=== PATIENT | female | born 1960 | race American Indian/Alaskan Native ===

== ENCOUNTER 2019-06-29 06:01 | Inpatient (IN) | payer MEDICARE ==
[2019-06-29] MEDS ORDERED: BUPIVACAINE-EPINEPHRINE/PF 0.5%-1:200,000 (30 ML) VIAL INFILTRATI ONE ×2 (06:50→08:08)
[2019-06-29] MEDS ORDERED: LACTATED RINGERS 1,000 ML ONE (07:07)
[2019-06-29] MEDS ORDERED: fentaNYL 100 MCG/2 ML INJ IV PRN (07:17)
[2019-06-29] MEDS ORDERED: ONDANSETRON 4 MG/2 ML INJ IV PRN (07:17)
[2019-06-29] MEDS ORDERED: HYDROmorphone 1 MG/1 ML INJ IV PRN (07:17)
--- NOTE | 2019-06-29 07:18 | Anesthesia Day of Surgery ---
Anesthesia Day of Surgery - Day of Surgery Patient Examined: Yes Patient H&P Reviewed: Yes Patient is NPO: Yes
--- NOTE | 2019-06-29 07:23 | Anesthesia Consultation ---
Anesthesia Consult and Med Hx Date of service: 06/29/19 - Airway Anesthetic Teeth Evaluation: Good ROM Head & Neck: Adequate Mental/Hyoid Distance: Adequate Mallampati Class: Class II Intubation Access Assessment: Probably Good - Pre-Operative Health Status ASA Pre-Surgery Classification: ASA3 Proposed Anesthetic Plan: General - Pulmonary Hx Sleep Apnea: (HIGH RISK; PCP SCHEDULING SLEEP STUDY) - Cardiovascular System Hx Hypertension: Yes (RECENT DX; ON MED 1MO.) Hx Coronary Artery Disease: No (NST last year and ok per pt) - Central Nervous System Hx Seizures: Yes (2008;2016) Hx Back Pain: Yes Hx Psychiatric Problems: No - Hematic Hx Anemia: Yes (WHEN YOUNGER) - Other Systems Hx Alcohol Use: No Hx Substance Use: No Hx Cancer: No Hx Obesity: Yes
[2019-06-29] MEDS ORDERED: NEOSTIGMINE 10MG/10 ML INJ MDV ONE (07:29)
[2019-06-29] MEDS ORDERED: PHENYLEPHRINE/NS 1,000 MCG/10 ML SYRINGE (OR USE) IV ONE ×2 (07:29→08:04)
[2019-06-29] MEDS ORDERED: dexAMETHasone 20 MG/5 ML VIAL ONE (07:29)
[2019-06-29] MEDS ORDERED: SUCCINYLCHOLINE CHLORIDE 200 MG/10 ML INJ MDV ONE (07:29)
[2019-06-29] MEDS ORDERED: fentaNYL 250 MCG/5 ML INJ ONE (07:29)
[2019-06-29] MEDS ORDERED: PROPOFOL 200 MG/20 ML VIAL IV ONE (07:29)
[2019-06-29] MEDS ORDERED: GLYCOPYRROLATE 0.4 MG/2 ML INJ ONE (07:29)
[2019-06-29] MEDS ORDERED: LIDOCAINE MPF (2%) 20 MG/1 ML VIAL 5 ML ONE (07:29)
[2019-06-29] MEDS ORDERED: ONDANSETRON 4 MG/2 ML INJ ONE (07:29)
[2019-06-29] MEDS ORDERED: ROCURONIUM 50 MG/5 ML INJ IV ONE (07:30)
[2019-06-29] MEDS ORDERED: ePHEDrine SULFATE 50 MG/1 ML INJ ONE (07:57)
[2019-06-29] MEDS ORDERED: LACTATED RINGERS 1,000 ML IV SCH (08:00)
[2019-06-29] MEDS ORDERED: SODIUM CHLORIDE 0.9% IRR 1,500 ML BOTTLE IR ONE (08:08)
[2019-06-29] MEDS ORDERED: KETOROLAC 30 MG/1 ML INJ IV PRN (08:49)
--- NOTE | 2019-06-29 09:09 | Operative Report ---
PREOPERATIVE DIAGNOSES: 1. Abdominal pain, rule out adhesions. 2. Visible and tender ventral hernia. POSTOPERATIVE DIAGNOSES: 1. Abdominal pain, rule out adhesions. 2. Visible and tender ventral hernia. 3. Ventral hernia was confirmed. There were extensive thick omental adhesions throughout the lower abdomen. Also, small bowel was noted to be adhered deep in the lower abdomen. This area could not be safely dissected at this time. PROCEDURE: 1. Lysis of extensive omental adhesions. 2. Repair of ventral hernia with mesh. SURGEON: Reji Garza MD OPERATIONS SUPERVISOR: Dr. Goldsmith. ANESTHESIA: General. ESTIMATED BLOOD LOSS: Minimal. DRAINS: None. COMPLICATIONS: None. DESCRIPTION OF PROCEDURE: The patient was taken to the operating room, prepped and draped in usual sterile fashion. Veress needle was inserted and CO2 insufflation begun. A 5 mm trocar was then inserted and camera inserted. Inspection of the abdomen did indeed confirm ventral hernia. Also, extensive thickened omental adhesions as previously described. Two lateral 5 mm ports were then inserted. A careful lysis of omental adhesions was then performed using the Harmonic scalpel. Once the entire area was cleared further intestinal adhesions were noted near the bladder and pubic area. This area was carefully dissected, but it safely could not be completely freed as the serosa was adhered and plastered to the peritoneum and with some surrounding scar tissue, it was decided to thus not to proceed with attempting to lysis area. This is most likely end up with iatrogenic injuries and conversion to open surgery. A medium Ventralex mesh was then placed through a 10 mm trocar at the site of ventral hernia defect. The mesh was then tacked to the peritoneum with the tackers. The strap was also secured anteriorly to the fascia with a [id number] Vicryl suture. A careful inspection of the intestinal area was once again done. Possible a very superficial serosal tear was noted, but no mucosal injuries or leakage of any sulcus entericus was noted. The patient will be kept overnight for 23-hour observation to assure no other injury that is being missed. The lateral 5 mm ports were then removed under direct visualization. No bleeding or oozing noted. The final 5 mm port was used to expel the CO2 and the trocar removed. The skin at all port sites was closed with subcuticular 4-0 Vicryl. A 0.5% Marcaine was infiltrated over the port site for postoperative pain relief. Steri-Strips, 2 x 2, and Tegaderms applied. Abdominal binder will also be placed. The patient tolerated the procedure well and left the OR in stable condition. JOB# [id number] MIRIAM/PRADEEP
[2019-06-29] MEDS: D5W/0.45% NACL/KCL 20 MEQ 20 MEQ/1,000 ML BAG IV SCH (11:21)
[2019-06-29] MEDS: ONDANSETRON 4 MG/2 ML INJ IV PRN ×2 (18:09→23:14)
[2019-06-29] MEDS: ceFAZolin/NS 1 GM/50 ML 1 GM/50 ML BAG IV SCH ×2 (18:11→23:15)
[2019-06-29] MEDS: HYDROmorphone 1 MG/1 ML INJ IV PRN ×2 (18:11→23:14)
[2019-06-30] MEDS: D5W/0.45% NACL/KCL 20 MEQ 20 MEQ/1,000 ML BAG IV SCH ×2 (01:56→11:15)
[2019-06-30] MEDS: HYDROmorphone 1 MG/1 ML INJ IV PRN ×4 (02:13→21:49)
[2019-06-30 05:44] LABS: Basophils % (Auto) 0.1 % (0.0-1.8); Hematocrit 37.7 % (30.3-42.9); Hemoglobin 12.5 gm/dl (10.1-14.3); Lymphocytes # (Auto) 0.8 K/mm3 (1.2-5.4); Lymphocytes % (Auto) 7.5 % (13.4-35.0); Mean Corpuscular HGB Conc 33 % (30-34); Mean Corpuscular Volume 79 fl (79-97); Monocytes # (Auto) 0.7 K/mm3 (0.0-0.8); Monocytes % (Auto) 6.3 % (0.0-7.3); Platelet Count 203 K/mm3 (140-440); Red Blood Count 4.76 M/mm3 (3.65-5.03); Red Cell Distribution Width 15.4 % (13.2-15.2)
[2019-06-30 06:22] LABS: BUN/Creatinine Ratio 11; Blood Urea Nitrogen 9 mg/dL (7-17); Calcium 8.5 mg/dL (8.4-10.2); Hemolysis Index 10
[2019-06-30] MEDS: diphenhydrAMINE 50 MG/ML VIAL IV PRN ×2 (09:44→23:54)
--- NOTE | 2019-06-30 10:02 | Progress Note ---
Assessment and Plan POD # 1 Pt c/o abd pain last night requiring Dilaludid for relief. Still c/o abd pain but "better" Abd obese, soft. more so periumbilical pain. no guarding. hypoactive BS wbc 10.7 surgically stable attempt cl liq diet ambulate down halls as darin Selected Entries 06/30/19 06/30/19 04:56 07:30 Temperature 98.4 F Pulse Rate 69 Respiratory 18 Rate Blood Pressure 107/56 Laboratory Tests 06/30/19 04:31 WBC 10.7 Hgb 12.5 Hct 37.7 Objective Vital Signs - 12hr 06/30/19 06/30/19 06/30/19 00:42 04:56 07:30 Temperature 98.5 F 98.5 F 98.4 F Pulse Rate 65 76 69 Respiratory 20 18 20 Rate Blood Pressure 105/55 107/56 98/42 O2 Sat by Pulse 95 95 96 Oximetry - Labs 06/30/19 04:31 06/30/19 04:31 Diabetes panel 06/30/19 Range/Units 04:31 Sodium 137 (137-145) mmol/L Potassium 4.5 (3.6-5.0) mmol/L Chloride 102.2 (98-107) mmol/L Carbon Dioxide 23 (22-30) mmol/L BUN 9 (7-17) mg/dL Creatinine 0.8 (0.7-1.2) mg/dL Glucose 135 H (65-100) mg/dL Calcium 8.5 (8.4-10.2) mg/dL Calcium panel 06/30/19 Range/Units 04:31 Calcium 8.5 (8.4-10.2) mg/dL Pituitary panel 06/30/19 Range/Units 04:31 Sodium 137 (137-145) mmol/L Potassium 4.5 (3.6-5.0) mmol/L Chloride 102.2 (98-107) mmol/L Carbon Dioxide 23 (22-30) mmol/L BUN 9 (7-17) mg/dL Creatinine 0.8 (0.7-1.2) mg/dL Glucose 135 H (65-100) mg/dL Calcium 8.5 (8.4-10.2) mg/dL Adrenal panel 06/30/19 Range/Units 04:31 Sodium 137 (137-145) mmol/L Potassium 4.5 (3.6-5.0) mmol/L Chloride 102.2 (98-107) mmol/L Carbon Dioxide 23 (22-30) mmol/L BUN 9 (7-17) mg/dL Creatinine 0.8 (0.7-1.2) mg/dL Glucose 135 H (65-100) mg/dL Calcium 8.5 (8.4-10.2) mg/dL
--- NOTE | 2019-06-30 13:16 | Post Anesthesia Evaluation ---
- Post Anesthesia Evaluation Patient Participated: Yes Airway Patent: Yes Stable Respiratory Function: Yes Nausea/Vomiting: No Temp > 96.8F: Yes Pain Manageable: Yes Adequeate Hydration: Yes Anesthesia Complications: No Block Receding Appropriately: Not Applicable Patient on Ventilator: No
[2019-06-30] MEDS: KETOROLAC 10 MG TAB PO PRN (17:56)
[2019-06-30] MEDS: ONDANSETRON 4 MG/2 ML INJ IV PRN (21:49)
[2019-07-01] MEDS: KETOROLAC 10 MG TAB PO PRN (05:44)
--- NOTE | 2019-07-01 12:45 | Progress Note ---
Assessment and Plan POD # 2 Pt status quo. neg flatus "just burping". moderately darin cl liq diet. occ nausea. c/o two episodes of sharp abd pain Abd minimally distended. hypoactive BS stable ileus limit to cl liq encourage ambulation continue present care Selected Entries 07/01/19 07:21 Temperature 97.7 F Pulse Rate 68 Respiratory 20 Rate Blood Pressure 95/42 Laboratory Tests 06/30/19 04:31 WBC 10.7 Objective Vital Signs - 12hr 07/01/19 07/01/19 04:19 07:21 Temperature 98.6 F 97.7 F Pulse Rate 72 68 Respiratory 20 20 Rate Blood Pressure 106/56 95/42 O2 Sat by Pulse 93 95 Oximetry - Labs 06/30/19 04:31 06/30/19 04:31
[2019-07-01] MEDS: D5W/0.45% NACL/KCL 20 MEQ 20 MEQ/1,000 ML BAG IV SCH (21:45)
[2019-07-02] MEDS: D5W/0.45% NACL/KCL 20 MEQ 20 MEQ/1,000 ML BAG IV SCH (06:51)
--- NOTE | 2019-07-02 12:08 | Progress Note ---
Assessment and Plan POD 3 Pt passed flatus. feeling well. to cl liq diet Abd soft, non tender stable advance to full liq d/c today if diet darin advance to solid diet at home in am rto this Friday Objective Vital Signs - 12hr 07/02/19 07/02/19 07/02/19 00:22 04:58 07:24 Temperature 99.3 F 98.8 F 98.0 F Pulse Rate 88 79 79 Respiratory 20 20 18 Rate Blood Pressure 111/59 107/46 122/60 O2 Sat by Pulse 92 95 94 Oximetry - Labs 06/30/19 04:31 06/30/19 04:31
--- NOTE | 2019-07-02 12:12 | Discharge Summary ---
Providers - Providers Date of Admission: 07/01/19 12:41 Attending physician: EDIS CABRERA Primary care physician: MARTA SHARP Hospitalization Condition: Stable Disposition: DC-01 TO HOME OR SELFCARE Core Measure Documentation - Palliative Care Palliative Care/ Comfort Measures: Not Applicable - Core Measures Any of the following diagnoses?: none Exam - Constitutional Vitals: Temp Pulse Resp BP Pulse Ox 98.0 F 79 18 122/60 94 07/02/19 07:24 07/02/19 07:24 07/02/19 07:24 07/02/19 07:24 07/02/19 07:24 Plan Activity: other (full liq now. may d/c today if diet darin. advance to solid diet at home in am) Diet: other Wound: keep clean and dry (x 3 days) Special Instructions: no heavy lifting Follow up with: EDIS CABRERA MD [Staff Physician] - 07/05/19
[2019-07-02 13:06] VITALS: BP 112/56
--- NOTE | 2019-07-02 21:33 | Discharge Summary ---
DISCHARGE DIAGNOSIS: Extensive intraabdominal adhesions including omental as well as intestinal adhesions. PROCEDURE: While in hospital, diagnostic laparoscopy, lysis of extensive adhesions. HOSPITAL COURSE: The patient is a 59-year-old female who presented to the office with a chief complaint of persistent abdominal pain. The patient had had a previous intraabdominal surgeries. At this time, the patient was admitted for diagnostic laparoscopy. At time of surgery, extensive omental and intestinal adhesions were noted throughout the lower abdomen. These were slowly lysed without incident. The intestine itself was adhered to the lower abdomen and this area could not be freed. Because of the extensive adhesions and the proximity of small bowel that was plastered to the abdominal wall, it was felt prudent to keep the patient at least for 23-hour observation to assure no bowel injuries, bleeding, etc. The patient postoperatively was stable and doing fairly well, but was complaining of postoperative pain as well as abdominal distention and passing no flatus. The patient was started on clear liquids yesterday, which she moderately tolerated, but burp began and passing no gas. The patient kept ambulating and today is feeling much better. She has passed gas and is tolerating a clear liquid diet without incident. Her abdomen is soft and nontender. Bowel sounds are present. The patient will be advanced to full liquid diet this morning and will tentatively safely be discharged today if her diet is well tolerated. The patient has been instructed to call me immediately if she has any evidence of nausea, vomiting, abdominal pain, or fever. If not, the patient will advance herself to a solid diet at home in the morning and follow up in the office this Friday. JOB# [id number] MIRIAM/PRADEEP
== END 2019-07-02 17:26 | disposition home or self-care (01) | DRG 336 ==
LOC: OR 06:01 → 3B-SURG 08:44 → OBSVTOIN 07-01 12:41
PROVIDERS: ADMIT Surgery; ATTEND Surgery
PROC: 0WUF4JZ Supplement Abdominal Wall with Synthetic Substitute, Percutaneous Endoscopic Approach (ICD-10-PCS; principal; 2019-06-29)
PROC: 0DNU4ZZ Release Omentum, Percutaneous Endoscopic Approach (ICD-10-PCS; 2019-06-29)
DX: K43.9 Ventral hernia without obstruction or gangrene (principal); Z68.41 Body mass index [BMI] 40.0-44.9, adult; K56.7 Ileus, unspecified; K66.0 Peritoneal adhesions (postprocedural) (postinfection); E78.5 Hyperlipidemia, unspecified; E66.9 Obesity, unspecified; Z88.5 Allergy status to narcotic agent; Z88.8 Allergy status to other drugs, medicaments and biological substances; Z79.899 Other long term (current) drug therapy; Z86.73 Personal history of transient ischemic attack (TIA), and cerebral infarction without residual deficits; Z82.49 Family history of ischemic heart disease and other diseases of the circulatory system
CPT/HCPCS: 36415; 80048; 85025; G0378; C1781; J0330; J0690; J1100; J1170; J1200; J1885; J2370; J2405; J2704; J2710; J3010; J7120

== ENCOUNTER 2022-06-17 15:03 | Outpatient (CLI) | payer MEDICARE ==
[2022-06-17 16:02] LABS: Hematocrit 42.3 % (30.3-42.9); Mean Corpuscular HGB Conc 33 % (30-34); Mean Corpuscular Volume 80 fl (79-97); Platelet Count 211 K/mm3 (140-440); Red Cell Distribution Width 15.5 % (13.2-15.2)
[2022-06-17 16:25] LABS: Alanine Aminotransferase 33 units/L (7-56); Albumin 4.4 g/dL (3.9-5); Blood Urea Nitrogen 9 mg/dL (7-17); Calcium 9.5 mg/dL (8.4-10.2); Hemolysis Index 48
[2022-06-17 16:27] LABS: BUN/Creatinine Ratio 13
[2022-06-17 17:19] LABS: Erythrocyte Sedimentation Rate 59 mm/Hr (0-20)
[2022-06-20 19:14] LABS: Albumin 3.8 g/dL (3.8-4.8); Gamma Globulin 1.1 g/dL (0.8-1.7)
[2022-06-21 14:15] LABS: Vitamin D, 25-OH, D2 <4 ng/mL
[2022-06-22 05:57] LABS: ANA Screen, IFA Negative (Negative)
== END 2022-06-17 15:04 | disposition home or self-care (01) ==
LOC: LAB 15:03
PROVIDERS: ATTEND Specialist
DX: M31.6 Other giant cell arteritis (principal); G61.9 Inflammatory polyneuropathy, unspecified; I10 Essential (primary) hypertension; I63.9 Cerebral infarction, unspecified; R73.03 Prediabetes
CPT/HCPCS: 36415; 80053; 82306; 82607; 83036; 83921; 84165; 84443; 85027; 85652; 86038; 86140; 86225; 86334; 86592